=== PATIENT | female | born 1990 | race Caucasian/White ===

== ENCOUNTER 2023-01-26 00:11 | Emergency (ER) | payer OTHER ==
[~2023-01-26] VITALS: Ht 167.6 cm; Wt 140.2 kg
[~2023-01-26 00:11] MED LIST: LIPA1CAP32 PO
[2023-01-26 00:27] VITALS: BP_SYST 147; PULSE 93; RESP 20; TEMP 97.4; O2SAT 98
[2023-01-26] MEDS ORDERED: SULF1TAB48 PO (02:28)
[2023-01-26] MEDS ORDERED: LIDO30CR20 TP (02:28)
[2023-01-26] MEDS ORDERED: DOCU-144 PO (02:28)
[2023-01-26] MEDS ORDERED: IBUP-1969 PO (02:28)
[2023-01-26] MEDS ORDERED: LIDOCAINE 1% 10 MG/ML, 20 ML MDV INJ ONE (02:30)
[2023-01-26] MEDS ORDERED: traMADol HCL HCL 50 MG TABLET (ULTRAM) PO ONE (02:45)
[2023-01-26] MEDS ORDERED: TRAM50TA2 PO (02:45)
[2023-01-26] MEDS ORDERED: METOCLOPRAMIDE HCL 10 MG/2 ML VIAL IVP ONE (03:00)
[2023-01-26] MEDS ORDERED: SUMAtriptan SUCCINATE 6 MG/0.5 ML VIAL SUBCUT ONE (03:00)
[2023-01-26 03:20] VITALS: BP_SYST 136; PULSE 81; RESP 18; TEMP 97.4; O2SAT 100
== END 2023-01-26 03:20 | disposition home or self-care (01) ==
LOC: SED 00:11
DX: K61.1 Rectal abscess (principal); K64.4 Residual hemorrhoidal skin tags; Z88.5 Allergy status to narcotic agent; Z88.6 Allergy status to analgesic agent; Z79.899 Other long term (current) drug therapy
CPT/HCPCS: 46050; 99284; J2001

== ENCOUNTER 2023-01-30 04:18 | Emergency (ER) | payer OTHER ==
[~2023-01-30] VITALS: Ht 167.6 cm; Wt 137.9 kg
[~2023-01-30 04:18] MED LIST changes: +DOCU-144 PO; +IBUP-1969 PO; +LIDO30CR20 TP; +SULF1TAB48 PO; +TRAM50TA2 PO
[2023-01-30 04:33] VITALS: BP_SYST 126; PULSE 89; RESP 16; TEMP 97.2; O2SAT 95
[2023-01-30 05:20] VITALS: TEMP 98.1
[2023-01-30 05:40] LABS: BASOPHILS # (AUTO) 0.1 K/uL (0.0-0.2); BASOPHILS % (AUTO) 0.7 % (0.0-2.0); EOSINOPHILS # (AUTO) 0.1 K/uL (0.0-0.4); EOSINOPHILS % (AUTO) 0.8 % (0.0-4.0); HEMATOCRIT 37.1 % (36-48); LYMPHOCYTES # (AUTO) 3.3 K/uL (1.0-5.5); LYMPHOCYTES % (AUTO) 20.6 % (20.5-51.5); MEAN CORPUSCULAR HEMOGLOBIN 30 pg (27-31); MEAN CORPUSCULAR HGB CONC 33 % (32-36); MEAN CORPUSCULAR VOLUME 92 fL (79.0-98.0); MONOCYTES # (AUTO) 1.2 K/uL (0.0-1.0); MONOCYTES % (AUTO) 7.5 % (1.7-9.3); NEUTROPHILS # (AUTO) 11.2 K/uL (1.8-7.7); NEUTROPHILS % (AUTO) 70.4 % (40.0-70.0); PLATELET COUNT (AUTO) 444 K/uL (130-430); RED BLOOD CELL COUNT(AUTO) 4.04 MIL/uL (4.2-6.2); RED CELL DISTRIBUTION WIDTH 15.4 % (9.0-15.0)
[2023-01-30] MEDS ORDERED: LEVO13CA4 PO (05:54)
[2023-01-30 05:58] LABS: CALCIUM 7.9 mg/dL (8.4-11.0); CREATININE 0.99 mg/dL (0.55-1.30); POTASSIUM 3.7 mmol/L (3.5-5.1)
[2023-01-30 06:11] LABS: ALBUMIN 3.4 g/dL (3.4-4.8); FREE T4 (FREE THYROXINE) 0.8 ng/dL (0.6-1.6); THYROID STIMULATING HORMONE 6.05 uIu/mL (0.34-4.82); TOTAL BILIRUBIN 0.2 mg/dL (0.0-1.0); TOTAL PROTEIN, SERUM 7.2 g/dL (6.4-8.3)
[2023-01-30 06:53] VITALS: BP_SYST 120; PULSE 91; RESP 15; O2SAT 96
== END 2023-01-30 06:25 | disposition home or self-care (01) ==
LOC: SED 04:18
DX: K61.1 Rectal abscess (principal); L60.3 Nail dystrophy; E03.9 Hypothyroidism, unspecified; Z88.5 Allergy status to narcotic agent; Z88.6 Allergy status to analgesic agent; Z79.899 Other long term (current) drug therapy
CPT/HCPCS: 36415; 80053; 84439; 84443; 85025; 99283

== ENCOUNTER 2023-02-01 02:51 | Emergency (ER) | payer OTHER ==
[~2023-02-01] VITALS: Ht 167.6 cm; Wt 137.9 kg
[~2023-02-01 02:51] MED LIST changes: +LEVO13CA4 PO
[2023-02-01 02:58] VITALS: BP_SYST 127; PULSE 88; RESP 20; TEMP 98; O2SAT 98
[2023-02-01] MEDS ORDERED: LEVO25TA2 PO (03:40)
[2023-02-01 03:47] VITALS: BP_SYST 113; PULSE 88; RESP 20; TEMP 98; O2SAT 98
== END 2023-02-01 03:49 | disposition home or self-care (01) ==
LOC: SED 02:51
DX: M79.10 Myalgia, unspecified site (principal); L60.3 Nail dystrophy; Z86.39 Personal history of other endocrine, nutritional and metabolic disease; Z87.19 Personal history of other diseases of the digestive system; Z88.5 Allergy status to narcotic agent; Z88.6 Allergy status to analgesic agent; Z79.899 Other long term (current) drug therapy
CPT/HCPCS: 99283

== ENCOUNTER 2023-02-15 00:38 | Emergency (ER) | payer OTHER ==
[~2023-02-15] VITALS: Ht 170.2 cm; Wt 138.8 kg
[~2023-02-15 00:38] MED LIST changes: +LEVO25TA2 PO
[2023-02-15 00:54] VITALS: BP_SYST 140; PULSE 94; RESP 20; TEMP 98; O2SAT 98
[2023-02-15] MEDS ORDERED: ACETAMINOPHEN 500 MG TABLET PO ONE (03:45)
[2023-02-15] MEDS ORDERED: LIDOCAINE PATCH 5% 1 EA TP SCH (03:45)
[2023-02-15] MEDS ORDERED: CYCLOBENZAPRINE HCL 10 MG TABLET (FLEXERIL) PO ONE (03:45)
[2023-02-15] MEDS ORDERED: CYCL10TA25 PO (05:41)
[2023-02-15] MEDS ORDERED: LIDO1ADH71 TD (05:41)
[2023-02-15 05:49] VITALS: BP_SYST 138; PULSE 90; RESP 18; TEMP 98.2; O2SAT 97
== END 2023-02-15 05:49 | disposition home or self-care (01) ==
LOC: SED 00:38
DX: S83.92XA Sprain of unspecified site of left knee, initial encounter (principal); Z88.5 Allergy status to narcotic agent; Z88.6 Allergy status to analgesic agent; Z79.899 Other long term (current) drug therapy; W18.2XXA Fall in (into) shower or empty bathtub, initial encounter; Y93.89 Activity, other specified; Y92.89 Other specified places as the place of occurrence of the external cause; Y99.8 Other external cause status
CPT/HCPCS: 70450-TC; 71045; 71100; 72125-TC; 73564; 76376; 93971; 99284

== ENCOUNTER 2023-02-22 02:12 | Emergency (ER) | payer OTHER ==
[~2023-02-22] VITALS: Ht 167.6 cm; Wt 137.9 kg
[~2023-02-22 02:12] MED LIST changes: +CYCL10TA25 PO; +LIDO1ADH71 TD
[2023-02-22 02:24] VITALS: BP_SYST 151; PULSE 88; RESP 20; TEMP 98.1; O2SAT 98
[2023-02-22 02:58] VITALS: BP_SYST 151; PULSE 98; RESP 18; TEMP 98.1; O2SAT 97
== END 2023-02-22 02:58 | disposition home or self-care (01) ==
LOC: SED 02:12
DX: S83.92XA Sprain of unspecified site of left knee, initial encounter (principal); F07.81 Postconcussional syndrome; Z88.5 Allergy status to narcotic agent; Z88.6 Allergy status to analgesic agent; Z79.899 Other long term (current) drug therapy; W18.2XXA Fall in (into) shower or empty bathtub, initial encounter; Y93.89 Activity, other specified; Y92.89 Other specified places as the place of occurrence of the external cause; Y99.8 Other external cause status
CPT/HCPCS: 99282